=== PATIENT | male | born 1990 | race Caucasian/White ===

== ENCOUNTER 2023-10-19 16:23 | Emergency (ER) | payer BC, SELFPAY ==
[2023-10-19 16:50] VITALS: BP 126/94
[2023-10-19 17:20] LABS: % Eosinophils 3.2 % (0-6); % Immature Granulocytes 0.4 % (0-0.5); % Lymphocytes 36.1 % (20.5-51.1); % Monocytes 7.9 % (1.7-9.3); % Neutrophils 51.4 % (42.2-75.2); Absolute Basophils 0.1 10^3/uL (0-0.2); Absolute Eosinophils 0.3 10^3/uL (0-0.7); Absolute Monocytes 0.7 10^3/uL (0.1-0.6); Absolute Neutrophils 4.3 10^3/uL (1.4-6.5); Hematocrit 39.9 % (39.0-52.0); Hemoglobin 14.1 g/dL (13.0-18.0); Mean Corp Hgb Conc. 35.3 g/dL (33.0-37.0); Mean Corpuscular Hgb 29.1 pg (27.0-31.0); Mean Corpuscular Volume 82.3 fL (80.0-94.0); Mean Platelet Volume 9.9 fL (7.4-10.4); Nucleated Red Blood Cells % 0 % (-); Platelet Count 226 10^3/uL (130-400); Red Blood Cell Count 4.85 10^6/uL (4.70-6.10); Red Cell Dist. Width 12.6 % (11.5-14.5); White Blood Cell Count 8.3 10^3/uL (4.8-10.8)
[2023-10-19 17:38] LABS: ALT (SGPT) 51 U/L (0-50); AST (SGOT) 39 U/L (17-59); Albumin 4.6 g/dl (3.5-5.0); Alkaline Phosphatase 81 U/L (38-126); Blood Urea Nitrogen 14 mg/dl (9-20); Calcium 9.8 mg/dl (8.4-10.2); Carbon Dioxide 27 mmol/L (22-30); Chloride 104 mmol/L (98-107); Glucose 98 mg/dl (70-99); Potassium 4.1 mmol/L (3.5-5.1); Sodium 139 mmol/L (135-145); Total Bilirubin 0.5 mg/dl (0.2-1.3); Total Protein 7.2 g/dl (6.3-8.2); eGFR > 60.00
--- NOTE | 2023-10-19 18:17 | ED.GENMED ---
History of Present Illness
General
Chief Complaint: Jaw Pain
Time Seen by Provider: 10/19/23 18:04
History of Present Illness
History of Present Illness:
32-year-old male presents to the emergency department for evaluation of right postauricular pain with concern for mastoiditis. He was apparently treated for acute otitis externa with oral and otic antibiotics 1 week ago and completed these
recently. Today he woke with mild discomfort behind the right ear and went to his primary care physician where he was advised to go see an ENT or the emergency department for possible mastoiditis. He denies any fevers or dizziness. Denies any
otorrhea or hearing loss
Past History
Past History
ED Past Medical History: GERD and Hypercholesterolemia
ED Past Surgical History: Orthopedic (Right arm surgery)
Social History
Tobacco: Non-smoker
Alcohol: None
Drug: None
Personal: Single
Living: with family
Employment: Employed (student)
Family History
Family History: Other
Review of Systems
Review of Systems
Allergies reviewed?: Yes
All Other Systems: ROS reviewed and negative except as documented in HPI and ROS
Phy Exam
Physical Exam
Physical Exam:
GEN: Well appearing, NAD, WDWN
HEENT: Oral mucosa moist, no scleral icterus. There is no swelling, bogginess, or erythema of the right mastoid space. No palpable postauricular adenopathy. No palpable preauricular adenopathy. Right external auditory canal is clear and tympanic
membrane is translucent with no effusion or erythema
Cardiac: Regular rate
Lung: No respiratory distress, no tachypnea
MSK: No gross deformity or injuries
Skin: Good color, no pallor or jaundice, no rashes
Neuro: AO x3, moves all extremities freely
Psych: Calm, cooperative
Course
Orders/Labs/Results
Orders:
Orders
10/19/23 16:59
Complete Blood Count/With Diff Urgent
Comprehensive Metabolic Panel Urgent
Abnormal Lab Results
10/19/23
16:59
Absolute Monos (auto) 0.7 H 10^3/uL
(0.1-0.6)
ALT 51 H U/L
(0-50)
10/19/23 16:59
10/19/23 16:59
Vital Signs
Initial and Last Documented VS:
Initial Vital Signs
Temp Pulse Resp BP Pulse Ox
98.3 F 89 18 126/94 99
10/19/23 16:50 10/19/23 16:50 10/19/23 16:50 10/19/23 16:50 10/19/23 16:50
Last Documented Vital Signs
Temp Pulse Resp BP Pulse Ox
98.2 F 75 18 119/76 99
10/19/23 18:24 10/19/23 18:24 10/19/23 18:24 10/19/23 18:24 10/19/23 18:24
MDM/Problems Addressed
MDM/Problems Addressed:
Patient's exam is benign. His labs are reassuring. He has no fever or leukocytosis thus I have a low suspicion for mastoiditis and do not feel there is any indication for imaging at this time. Recommend NSAIDs and home observation
*Critical Care Note
Total Time (30-74mins, 75-104mins- exclusive of procedures): Not Applicable
ED Attending Note
-
Portions of this chart may have been created with voice recognition software.� Occasional wrong word or��sound alike� substitutions may have occurred due to the inherent limitations of voice recognition software.
Discharge Plan
Departure
Patient Disposition: Home (Routine Discharge)
Date of Disposition: 10/19/23
Time of Disposition: 18:17
Patient with high blood pressure during this ER visit?: No
Discharge Problem:
Posterior auricular pain of right ear
Prescriptions:
No Action
Acne Medication
1 tab DAILY
Patient Comments:
mom not sure of med
hydrocodone-acetaminophen 5 MG/500 MG tablet
1 tab PO .Q4-6HPRN PRN (Reason: PAIN) Qty: 20 0RF
ibuprofen 600 MG tablet
600 mg PO Q6HPRN PRN (Reason: pain alternate with vicoden) Qty: 40 0RF
prednisone 20 MG tablet
20 mg PO BID Qty: 10 0RF
metoprolol succinate [Toprol XL] 25 MG tablet extended release 24 hr
25 mg PO DAILY Qty: 30 0RF
prednisone 20 mg tablet
20 mg PO DAILY 4 Days Qty: 4 0RF
pantoprazole [Protonix] 40 mg tablet,delayed release (DR/EC)
40 mg PO DAILY Qty: 10 0RF
Referrals:
Cassandra Cornell MD [Family Provider] -
Activity Restrictions/Additional Instructions:
The cause of your pain is not clear at this time however you have no clinical symptoms of mastoiditis
Your right eardrum and ear canal are clear
Please take ibuprofen every 6-8 hours and ice the area, monitor the area for increased swelling or pain. If you begin to notice a deformity of the right ear that may suggest further follow-up is needed
Interventions
Interventions:
*Risk Screen - Suicide Last Done: 10/19/23 16:50
*General Assessment Last Done: 10/19/23 16:50
*Neglect/Abuse Screening Last Done: 10/19/23 16:50
ED- Fall Risk Assessment Last Done: 10/19/23 18:24
*ED COVID-19 Vaccine History Last Done: 10/19/23 16:50
*Nursing Disposition Last Done: 10/19/23 18:26
ED-EENT Assessment Last Done: 10/19/23 18:24
ED- Cardiac Assessment Last Done: 10/19/23 18:24
Discharge Date and Time
Discharge Date/Time: 10/19/23 18:30
Print Language: KHMER
[2023-10-19 18:24] VITALS: BP 119/76
== END 2023-10-19 18:30 | disposition home or self-care (01) ==
LOC: EMR 16:23
PROVIDERS: EMERGENCY PHYSICIAN Emergency Medicine; FAMILY PHYSICIAN Emergency Medicine
DX: H92.01 Otalgia, right ear (principal); K21.9 Gastro-esophageal reflux disease without esophagitis; E78.00 Pure hypercholesterolemia, unspecified
CPT/HCPCS: 99283; 80053; 85025

== ENCOUNTER → 2023-10-20 15:15 | Outpatient (REF) | payer BC, SELFPAY | LOC: HWRAD 15:15 | PROVIDERS: ATTENDING PHYSICIAN Nurse Practitioner Family | DX: H70.001 Acute mastoiditis without complications, right ear (principal) | CPT/HCPCS: 70450 ==

== ENCOUNTER 2024-07-12 06:18 | Day surgery (SDC) | payer BC, SELFPAY ==
[2024-07-12] VITALS (11 sets, daily range): BP systolic 113–126; BP diastolic 64–79
[2024-07-12] MEDS: TYLENOL 1000 MG PO (10:01)
[2024-07-12] MEDS: CELEBREX 200 MG PO (10:02)
[2024-07-12] MEDS: NORMOSOL-R/PLASMALYTE-A 1000 IV (10:08)
[2024-07-12] MEDS: ZOFRAN 4 MG IV (12:30)
[2024-07-12] MEDS: DILAUDID 0.25 MG IV (12:32)
== END 2024-07-12 14:05 | disposition home or self-care (01) ==
LOC: SDS 06:18
PROVIDERS: ATTENDING PHYSICIAN Orthopaedic Surgery; FAMILY PHYSICIAN Family Medicine
DX: T84.84XA Pain due to internal orthopedic prosthetic devices, implants and grafts, initial encounter (principal); Y83.1 Surgical operation with implant of artificial internal device as the cause of abnormal reaction of the patient, or of later complication, without mention of misadventure at the time of the procedure
CPT/HCPCS: 20680